=== PATIENT | female | born 1980 | race American Indian/Alaskan Native ===

== ENCOUNTER 2021-09-02 19:02 | Emergency (ER) | payer SELFPAY ==
[2021-09-02 21:08] VITALS: BP 200/129
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
--- NOTE | 2021-09-02 21:56 | XRay Report ---
CERVICAL SPINE 5 VIEWS INDICATION / CLINICAL INFORMATION: back pain. COMPARISON: None available. FINDINGS: VERTEBRAE: No acute displaced fracture. There is mild reversal of the normal cervical lordosis which may be positional. DISC SPACES / FACET JOINTS:No significant abnormality. PARASPINAL SOFT TISSUES:No significant abnormality. No prevertebral soft tissue swelling. ADDITIONAL FINDINGS: None. Signer Name: Carlos Alberto Marrero MD Signed: 09/02/2021 9:51 PM Workstation Name: [id number]
== END 2021-09-02 23:50 | disposition left against medical advice (07) ==
LOC: ED 19:02
DX: M54.9 Dorsalgia, unspecified (principal); Z53.21 Procedure and treatment not carried out due to patient leaving prior to being seen by health care provider
CPT/HCPCS: 72040; 72100